=== PATIENT | female | born 1985 | race African-American/Black ===

== ENCOUNTER 2018-05-12 00:28 | Emergency (ER) | payer MEDICAID ==
[~2018-05-12] VITALS: Ht 165.1 cm; Wt 70.8 kg
--- NOTE | 2018-05-12 00:28 | NUR ---
Patient BIBA BLS, transferred to bed 4. RN evaluating patient at bedside.
[2018-05-12 00:30] VITALS: BP 127/81
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
--- NOTE | 2018-05-12 01:02 | NUR ---
[place] [employer] AT BEDSIDE.
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
--- NOTE | 2018-05-12 01:40 | NUR ---
PT REFUSING LAB DRAW AND URINE SAMPLE. CORTEZ FOWLER MADE AWARE.
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
--- NOTE | 2018-05-12 05:21 | NUR ---
PT SLEEPING. NO APPARENT DISTRESS. WILL CONTINUE TO MONITOR. VSS.
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
--- NOTE | 2018-05-12 06:55 | NUR ---
PT GIVEN BUS PASS PRIOR TO DISCHARGE
--- NOTE | 2018-05-12 06:55 | NUR ---
PT GIVEN HOMELESS PACKET PRIOR TO DISCHARGE.
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
[2018-05-12 06:59] VITALS: BP 123/82
== END 2018-05-12 06:58 | disposition home or self-care (01) ==
LOC: MED 00:28
DX: R07.89 Other chest pain (principal)
CPT/HCPCS: 99283